=== PATIENT | female | born 1990 | race African-American/Black ===

== ENCOUNTER 2022-02-06 14:12 | Emergency (ER) | payer MEDICAID, OTHER ==
[~2022-02-06] VITALS: Ht 167.6 cm; Wt 54.4 kg
[2022-02-06 14:34] VITALS: BP 113/69
[2022-02-06] MEDS ORDERED: TRIA0.02 TOP (14:47)
[2022-02-06] MEDS ORDERED: CEPH500T PO (14:47)
== END 2022-02-06 14:59 | disposition home or self-care (01) ==
LOC: ER 14:12
DX: S70.362A Insect bite (nonvenomous), left thigh, initial encounter (principal); Z79.899 Other long term (current) drug therapy; Z86.718 Personal history of other venous thrombosis and embolism; W57.XXXA Bitten or stung by nonvenomous insect and other nonvenomous arthropods, initial encounter; Y93.89 Activity, other specified; Y92.89 Other specified places as the place of occurrence of the external cause; Y99.8 Other external cause status